=== PATIENT | male | born 1965 | race African-American/Black ===

== ENCOUNTER 2022-10-29 03:18 | Emergency (ER) | payer OTHER ==
[~2022-10-29] VITALS: Ht 180.3 cm; Wt 84.0 kg
[~2022-10-29 03:18] MED LIST: CEPH500T MT; SULF1TAB48 MT; T3 PO
[2022-10-29 03:20] VITALS: BP 93/51; O2SAT 100
[2022-10-29] MEDS ORDERED: HYDROCODONE/ACETAMINOPHEN 5/325MG TABLET PO ONE (03:45)
[2022-10-29] MEDS ORDERED: IBUP-2029 MT (04:06)
[2022-10-29] MEDS ORDERED: T3 PO (04:06)
[2022-10-29 04:50] VITALS: PULSE 70; RESP 18; TEMP 98.1
== END 2022-10-29 04:50 | disposition home or self-care (01) ==
LOC: ER 03:31
DX: S62.101A Fracture of unspecified carpal bone, right wrist, initial encounter for closed fracture (principal); W18.39XA Other fall on same level, initial encounter; Y93.89 Activity, other specified; Y92.89 Other specified places as the place of occurrence of the external cause; Y99.8 Other external cause status
CPT/HCPCS: 73110; 99283